=== PATIENT | male | born 1985 | race Caucasian/White ===

== ENCOUNTER → 2025-03-20 | Outpatient (CLI) | payer OTHER ==
--- NOTE | 2025-03-20 20:52 | CT ---
EXAMINATION TYPE: CT ChestAbdPelvis w con CT DLP: 1853.50 mGycm, Automated exposure control for dose reduction was used. DATE OF EXAM: 03/20/2025 6:06 PM COMPARISON: None CLINICAL INDICATION:Male, 39 years old with history of R59.0 LOCALIZED ENLARGED LYMP H NODES; PHH, enlarged lymph nodes in both armpits Technique: Multiple axial images of the chest, abdomen, and pelvis were obtained following the intrav enous administration of 100 mL Isovue-300. Two-dimensional coronal and sagittal reconstructions were obtained. Findings: CHEST: LUNGS/ PLEURA: No pleural effusion, pneumothorax, focal consolidation. No suspicious pulmonary nodule or mass. AIRWAY: Patent and unremarkable.. HEART: Mildly prominent heart size. . No pericardial effusion. No significant coronary artery calcifi cations. MEDIASTINUM: No evidence of adenopathy. VASCULATURE: No aortic aneurysm. MUSCULOSKELETAL: No acute osseous abnormalities. No aggressive osseous lesion. SOFT TISSUES/LYMPH NODES: Mild bilateral gynecomastia. No pathologically enlarged axillary lymph node s greater than 1 cm short axis. LOWER NECK: No significant findings. ABDOMEN: ABDOMEN LIVER: Unremarkable GALLBLADDER AND BILE DUCTS: Unremarkable. PANCREAS: Unremarkable. SPLEEN: Not enlarged. Subcentimeter cyst. ADRENAL GLANDS: Unremarkable. KIDNEYS AND URETERS: No evidence of hydronephrosis or renal calculus. The kidneys enhanced symmetrica lly. Contrast is demonstrated within both collecting systems on delayed phase extending into the prox imal ureters. PELVIS BLADDER: Unremarkable REPRODUCTIVE: Unremarkable. ABDOMEN & PELVIS STOMACH AND BOWEL: Stomach and duodenum are unremarkable. No bowel wall thickening or surrounding inf lammatory changes. The appendix is within normal limits. No evidence of bowel obstruction. PERITONEUM: No evidence of pneumoperitoneum or free fluid. VASCULATURE: No evidence of aortic aneurysm. MUSCULOSKELETAL: No acute osseous abnormalities. No aggressive osseous lesion. LYMPH NODES: No evidence for lymphadenopathy. SOFT TISSUE/ABDOMINAL WALL: Unremarkable IMPRESSION: No CT evidence for acute process within the chest, abdomen or pelvis. No pathologically enlarged lymp h nodes identified. [facility], , 03/20/2025 8:49 PM
--- NOTE | 2025-03-20 20:55 | CT ---
EXAMINATION TYPE: CT soft tissue neck w con CT DLP: 1853.50 mGycm, Automated exposure control for dose reduction was used. DATE OF EXAM: 03/20/2025 6:08 PM COMPARISON: None. CLINICAL INDICATION:Male, 39 years old with history of R59.0 LOCALIZED ENLARGED LYMPH NODES; PHH, enl arged lymph nodes in both armpits TECHNIQUE: Standard enhanced CT of the neck following intravenous administration of 100 cc of Isovue 300. Axial sections with coronal and sagittal reformats were obtained. FINDINGS: Brain: Visualized portions are grossly unremarkable. Orbits: Unremarkable Sinuses: Moderate opacification of left ethmoid sinus. Minimal mucosal thickening of the left inferio r maxillary sinus. Mild mucosal thickening of the inferior right maxillary sinus. Suprahyoid Neck: The oropharynx, oral cavity, parapharyngeal and retropharyngeal spaces are clear and symmetric. The nasopharynx is unremarkable. Infrahyoid Neck: The larynx, hypopharynx, and supraglottic area are clear and symmetric. Parotid Glands: Unremarkable. Submandibular Glands: Unremarkable. Musculoskeletal: No acute osseous pathology. No aggressive osseous lesion. Lymph nodes: Multiple cervical nonenlarged lymph nodes identified. No lymph nodes greater than 1 cm short axis. Vascular structures: Visualized major arteries are patent without evidence of aneurysm. Thoracic Inlet/airway: Airway is patent. The lung apices are clear. Soft tissues/Thyroid: Thyroid and remainder of the soft tissues are unremarkable. Other: none. IMPRESSION: 1. No CT evidence for acute process within the neck. 2. Multiple nonenlarged cervical lymph nodes. No lymph nodes greater than 1 cm short axis. [facility], , 03/20/2025 8:53 PM
== END | disposition home or self-care (01) ==
LOC: RADCTMAIN 15:14
PROVIDERS: ATTEND Internal Medicine Hematology & Oncology
DX: R59.0 Localized enlarged lymph nodes (principal)
CPT/HCPCS: 70491; 71260; 74177; Q9967